=== PATIENT | male | born 1965 | race Caucasian/White ===

== ENCOUNTER → 2017-01-12 | Outpatient (CLI) | payer BC, OTHER ==
[~2017-01-12] MED LIST: ASPI325T4 PO; CARV25TA12 PO; HYDR-3307 PO; LISI5TAB7 PO; ONDA4TAB10 PO; SPIR25TA3 PO; TIZA4CAP2 PO
== END | disposition home or self-care (01) ==
LOC: CFH 06:37
PROVIDERS: ATTEND Internal Medicine Cardiovascular Disease
DX: I48.0 Paroxysmal atrial fibrillation (principal); I10 Essential (primary) hypertension; I42.9 Cardiomyopathy, unspecified
CPT/HCPCS: 93306

== ENCOUNTER 2020-05-09 08:07 | Emergency (ER) | payer BC, OTHER ==
[~2020-05-09] VITALS: Ht 180.3 cm; Wt 118.0 kg
[~2020-05-09 08:07] MED LIST changes: +ASPI325T17 PO; -ASPI325T4 PO; +HYDR-3246 PO; -HYDR-3307 PO; -SPIR25TA3 PO; +SPIR25TA5 PO
--- NOTE | 2020-05-09 08:26 | NUR ---
PATIENT WALKED BACK FROM TRIAGE WITH CHIEF C/O ABD PAIN AND NAUSEA. PATIENT REPORTS BLACK TARRY STOOL X3 DAYS. DIFFUSE ABD PAIN AND NAUSEA HAS PROGRESSIVELY GOTTEN WORSE OVER THE LAST 3 DAYS. PATIENT DENIES VOMITTING, DENIES FEVER. PATIENT A &OX4, NO SIGNS OF ACUTE DISTRESS, CONNECTED TO VITALS MACHINE, CALL LIGHT WITHIN REACH.
--- NOTE | 2020-05-09 08:29 | NUR ---
ER PROVIDER AT BEDSIDE FOR EVALUATION.
[2020-05-09] MEDS ORDERED: SODIUM CHLORIDE 0.9% 1,000ML IVBOLUS ONE (09:00)
[2020-05-09] MEDS ORDERED: PANTOPRAZOLE 40 MG IV IVPush ONE (09:00)
[2020-05-09] MEDS ORDERED: ONDANSETRON 2MG/ML, 2ML IVPush ONE (09:00)
[2020-05-09] MEDS ORDERED: MORPHINE SULFATE 4 MG/ML, 1ML IVPush PRN (09:00)
[2020-05-09 09:19] LABS: ALANINE AMINOTRANSFERASE 31 U/L (12-78); ALBUMIN 3.8 g/dL (3.4-5.0); ANION GAP 5 mmol/L (5-15); CALCIUM 8.7 mg/dL (8.5-10.1); CHLORIDE 112 mmol/L (98-107); CREATININE 0.84 mg/dL (0.7-1.3)
[2020-05-09 09:20] LABS: BASOPHILS % (AUTO) 1 % (0-1); EOSINOPHILS % (AUTO) 2 % (1-7); INTERNATIONAL NORMALIZED RATIO 1.03 (0.93-1.1); LYMPHOCYTES % (AUTO) 23 % (22-44); MEAN CORPUSCULAR HEMOGLOBIN 30.2 pg (27.5-34.5); MEAN CORPUSCULAR HGB CONC 32.7 g/dL (33.2-36.2); MONOCYTES % (AUTO) 7 % (2-9); NEUTROPHILS % (AUTO) 67 % (42-75); PLATELET COUNT 191 x10^3/uL (130-400); PROTHROMBIN TIME 10.9 Seconds (9.6-11.5); RED BLOOD COUNT 4.44 x10^6/uL (4.38-5.82); RED CELL DISTRIBUTION WIDTH 13.8 % (9.4-14.8)
[2020-05-09 09:21] LABS: ALKALINE PHOSPHATASE 97 U/L (45-117); BILIRUBIN,TOTAL 0.6 mg/dL (0.2-1.0); TOTAL PROTEIN 7.5 g/dL (6.4-8.2)
[2020-05-09] MEDS ORDERED: ONDANSETRON 2MG/ML, 2ML ONE (09:24)
[2020-05-09] MEDS ORDERED: PANTOPRAZOLE 40 MG IV ONE (09:25)
[2020-05-09] MEDS ORDERED: MORPHINE SULFATE 4 MG/ML, 1ML ONE (09:25)
[2020-05-09 09:27] LABS: MD NO
--- NOTE | 2020-05-09 09:29 | NUR ---
PATIENT MEDICATED PER eMAR, 1 LITER BOLUS STARTED, NO SIGNS OF ACUTE DISTRESS, CONNECTED TO LIP AND GATE BUILDER, VITALS WITHIN NORMAL LIMITS, CALL LIGHT WITHIN REACH.
[2020-05-09 10:07] VITALS: BP 106/62
--- NOTE | 2020-05-09 10:24 | NUR ---
Patient and significant other given discharge instructions and prescription they have confirmed that they understand the instructions. IV removed with tip intact. Patient ambulatory with steady gait from ED.
== END 2020-05-09 10:22 | disposition home or self-care (01) ==
LOC: ED 09:55
DX: K29.01 Acute gastritis with bleeding (principal); R10.13 Epigastric pain; G89.29 Other chronic pain; M54.9 Dorsalgia, unspecified; I25.2 Old myocardial infarction
CPT/HCPCS: 36415; 80053; 83690; 85025; 85610; 85730; 86850; 86900; 93005; 96361; 96374; 96375; 99284; C9113; J2270; J2405; J7030

== ENCOUNTER → 2020-11-06 | Outpatient (CLI) | payer BC ==
[~2020-11-06] MED LIST changes: -HYDR-3246 PO; +HYDR-3248 PO; +REGADENOSON 0.4 MG/5 ML SYRINGE ONE
== END | disposition home or self-care (01) ==
LOC: CFH 08:11
PROVIDERS: ATTEND Internal Medicine Cardiovascular Disease
DX: Z01.810 Encounter for preprocedural cardiovascular examination (principal); I42.9 Cardiomyopathy, unspecified; I71.2 Thoracic aortic aneurysm, without rupture; I25.89 Other forms of chronic ischemic heart disease
CPT/HCPCS: 78452; 93017; A9502; J2785

== ENCOUNTER → 2020-11-12 | Outpatient (CLI) | payer BC ==
[~2020-11-12] MED LIST changes: -REGADENOSON 0.4 MG/5 ML SYRINGE ONE
== END | disposition home or self-care (01) ==
LOC: CVU 13:12
PROVIDERS: ATTEND Internal Medicine Cardiovascular Disease
DX: Z01.810 Encounter for preprocedural cardiovascular examination (principal); I71.2 Thoracic aortic aneurysm, without rupture; I42.9 Cardiomyopathy, unspecified; I48.91 Unspecified atrial fibrillation; I51.7 Cardiomegaly
CPT/HCPCS: 93306